=== PATIENT | female | born 1940 | race Caucasian/White ===

== ENCOUNTER → 2017-05-21 | Outpatient (CLI) | payer MEDICARE ==
[~2017-05-21] MED LIST: REGADENOSON 0.4 MG/5 ML SYRINGE ONE
== END | disposition home or self-care (01) ==
LOC: CVU 07:24
PROVIDERS: ATTEND Internal Medicine Cardiovascular Disease
DX: R06.02 Shortness of breath (principal); R07.89 Other chest pain; I51.7 Cardiomegaly; E66.9 Obesity, unspecified
CPT/HCPCS: 78452; 93017; 93306; A9502; J2785

== ENCOUNTER 2020-10-30 08:28 | Emergency (ER) | payer MEDICARE ==
[~2020-10-30] VITALS: Ht 160 cm; Wt 80.0 kg
[2020-10-30 08:31] VITALS: BP 123/69
--- NOTE | 2020-10-30 08:33 | NUR ---
PT CAME IN [facility] SINCE 629. DENIES TRAUMA OR TAKING BLOOD THINNERS. BLEEDING CONTROLLED WITH A NOSE CLAMP
[2020-10-30] MEDS ORDERED: OXYMETAZOLINE NASAL SPRAY 0.05%,30ML ONE (08:49)
[2020-10-30] MEDS ORDERED: TRANEXAMIC ACID 100 MG/ML, 10ML ONE (08:50)
--- NOTE | 2020-10-30 08:52 | NUR ---
RECEIVED REPORT FROM BETH TALBERT. ASSUMING CARE AT THIS TIME. MEDS PULLED FOR ERMD ADMIN.
[2020-10-30] MEDS ORDERED: PHENYLEPHRINE NASAL 1%, 30ML DROPS NAS ONE (09:00)
[2020-10-30] MEDS ORDERED: TRANEXAMIC ACID 100 MG/ML, 10ML TP ONE (09:00)
[2020-10-30 09:02] LABS: BASOPHILS % (AUTO) 1 % (0-1); EOSINOPHILS % (AUTO) 1 % (1-7); LYMPHOCYTES % (AUTO) 19 % (22-44); MEAN CORPUSCULAR HEMOGLOBIN 30.1 pg (27.0-34.8); MEAN CORPUSCULAR HGB CONC 33.2 g/dL (32.4-35.8); MEAN PLATELET VOLUME 9.1 fL (7.4-10.4); MONOCYTES % (AUTO) 6 % (2-9); NEUTROPHILS % (AUTO) 73 % (42-75); PLATELET COUNT 241 x10^3/uL (130-400); RED BLOOD COUNT 4.69 x10^6/uL (3.82-5.3); RED CELL DISTRIBUTION WIDTH 14.1 % (9.6-15.2)
--- NOTE | 2020-10-30 09:07 | NUR ---
PER ERMD, PT PROVIDED WATER AND EMESIS BAG TO SWISH AND SPIT TO REMOVE DRIED BLOOD FROM MOUTH.
[2020-10-30 09:13] LABS: ALBUMIN 3.2 g/dL (3.4-5.0); ANION GAP 10 mmol/L (5-15); CALCIUM 8.8 mg/dL (8.5-10.1); CHLORIDE 111 mmol/L (98-107); CREATININE 1.52 mg/dL (0.55-1.02)
[2020-10-30] MEDS ORDERED: SILVER NITRATE STICK TP ONE (09:44)
--- NOTE | 2020-10-30 10:43 | NUR ---
ERMD HAS BEEN AT BEDSIDE FOR FURTHER ASSESSMENT AND TREATMENT
== END 2020-10-30 11:42 | disposition home or self-care (01) ==
LOC: ED 11:21
DX: R04.0 Epistaxis (principal); R42 Dizziness and giddiness; Z87.891 Personal history of nicotine dependence
CPT/HCPCS: 30901; 36415; 80048; 82040; 85025; 99284